=== PATIENT | female | born 1990 | race Two or more races ===

== ENCOUNTER 2016-11-19 03:09 | Inpatient (IN) | payer OTHER ==
[~2016-11-19] VITALS: Ht 157.5 cm; Wt 82.0 kg
[2016-11-19] VITALS (12 sets, daily range): BP systolic 102–126; BP diastolic 53–76
[2016-11-19 03:34] LABS: EOSINOPHIL (%) 2.3 % (0-5); EOSINOPHIL COUNT 0.3 K/uL (0-0.3); HEMATOCRIT 30.7 % (36.0-46.0); IMMATURE GRANULOCYTE (%) 0.8 % (0.0-0.7); IMMATURE GRANULOCYTE COUNT 0.1 K/uL; LYMPHOCYTE COUNT 2.4 K/uL (1.0-2.8); MCHC 31.9 G/DL (30.0-36.0); MCV 78.3 FL (83-99); MEAN PLAT.VOLUME 11.9 uM^3 (9.5-12.4); MONOCYTE (%) 4.4 % (3-12); MONOCYTE COUNT 0.6 K/uL (0-0.8); NEUTROPHIL (%) 75.9 % (45-76); PLATELET COUNT 253 K/uL (156-360); RBC DIS.WIDTH-SD 42.7 % (39-53); RED BLOOD COUNT 3.92 M/uL (3.80-5.20); WHITE BLOOD COUNT 14.5 K/uL (4.1-10.2)
[2016-11-19 03:56] LABS: ADD MIUA? YES; BILIRUBIN NEGATIVE; BLOOD NEGATIVE; COLOR YELLOW ((YELLOW)); GLUCOSE (STRIP) NEGATIVE; KETONES NEGATIVE; LEUKOCYTES TRACE; NITRITE NEGATIVE; PROTEIN (STRIP) NEGATIVE; UROBILINOGEN 0.2 MG/DL (0.2-1.0)
[2016-11-19 04:03] LABS: BACTERIA 1+ /HPF; EPITHELIAL CELLS RARE /HPF; MUCUS TRACE /LPF; RED BLOOD CELLS 0-5 /HPF (0-5); UCUL ADDED? NO; WHITE BLOOD CELLS 0-5 /HPF (0-5)
[2016-11-19 04:25] LABS: AMPHETAMINES QUANT VALUE 0 NG/ML; BARBITUATES QUANT VALUE 0 NG/ML; BENZODIAZEPINES QUANT VALUE 0 NG/ML; BENZODIAZEPINES, URINE SCREEN Negative (200 ng/mL); MARIJUANA QUANT VALUE 0 NG/ML; OPIATES QUANTITATIVE VALUE 0 NG/ML; PHENCYCLIDINE QUANT VALUE 0 NG/ML
[2016-11-19 05:13] LABS: METH RESISTANT S AUREUS PCR POSITIVE (NEGATIVE)
[2016-11-19 05:26] LABS: PROBE CHECK PASS
[2016-11-20 02:50] VITALS: BP 115/58
[2016-11-20 03:38] LABS: EOSINOPHIL (%) 1.4 % (0-5); EOSINOPHIL COUNT 0.2 K/uL (0-0.3); HEMATOCRIT 24.7 % (36.0-46.0); IMMATURE GRANULOCYTE (%) 0.8 % (0.0-0.7); IMMATURE GRANULOCYTE COUNT 0.1 K/uL; INSTRUMENT ABS NEUTROPHIL CT 9.5 K/uL; LYMPHOCYTE COUNT 3.2 K/uL (1.0-2.8); MCH 25.3 PG (29.0-34.0); MCHC 31.6 G/DL (30.0-36.0); MCV 80.2 FL (83-99); MEAN PLAT.VOLUME 11.7 uM^3 (9.5-12.4); MONOCYTE (%) 7.5 % (3-12); MONOCYTE COUNT 1.1 K/uL (0-0.8); NEUTROPHIL (%) 67.5 % (45-76); NEUTROPHIL COUNT 9.5 K/uL (1.8-6.4); PLATELET COUNT 193 K/uL (156-360); RBC DIS.WIDTH-SD 43.8 % (39-53); RED BLOOD COUNT 3.08 M/uL (3.80-5.20)
[2016-11-20 07:31] VITALS: BP 117/62
[2016-11-20 11:17] VITALS: BP 111/55
[2016-11-20 15:05] VITALS: BP 134/87
[2016-11-20 16:05] VITALS: BP 132/79
[2016-11-21 08:11] VITALS: BP 109/55
[2016-11-21 11:41] VITALS: BP 109/63
[2016-11-21] MEDS ORDERED: IBUPROFEN800 MG PO (15:28)
[2016-11-21] MEDS ORDERED: ENDOCET 5-3251 EACH PO (15:28)
[2016-11-21] MEDS ORDERED: DOCUSATE SODIU100 MG PO (15:28)
[2016-11-21] MEDS ORDERED: VITAFOL-OB+DHA1 EACH PO (15:29)
== END 2016-11-21 16:25 | disposition home or self-care (01) | DRG 765 ==
LOC: LDRP-OP 03:09 → 2WEST 03:10
PROVIDERS: Advanced Practice Midwife; Obstetrics & Gynecology
PROC: 10D00Z1 Extraction of Products of Conception, Low, Open Approach (ICD-10-PCS; principal; 2016-11-19)
DX: O75.82 Onset (spontaneous) of labor after 37 completed weeks of gestation but before 39 completed weeks gestation, with delivery by (planned) cesarean section (principal); O69.81X0 Labor and delivery complicated by cord around neck, without compression, not applicable or unspecified; O99.02 Anemia complicating childbirth; D62 Acute posthemorrhagic anemia; D50.9 Iron deficiency anemia, unspecified; O99.214 Obesity complicating childbirth; E66.9 Obesity, unspecified; O99.344 Other mental disorders complicating childbirth; F41.9 Anxiety disorder, unspecified; O99.824 Streptococcus B carrier state complicating childbirth; O99.834 Other infection carrier state complicating childbirth; Z22.322 Carrier or suspected carrier of Methicillin resistant Staphylococcus aureus; Z86.14 Personal history of Methicillin resistant Staphylococcus aureus infection; Z3A.38 38 weeks gestation of pregnancy; Z37.0 Single live birth
CPT/HCPCS: 80306 90; 81003; 82247; 82248; 82261 90; 82776 90; 84030 90; 84510 90; 85025; 86900; 86901; 87641; 94760; 99202; J0595; J1100; J1170; J2274; J2405; J2590; J3010; J3370; J7120; Q0169